=== PATIENT | male | born 1985 | race Caucasian/White ===

== ENCOUNTER 2017-07-27 09:37 | Inpatient (IN) | payer OTHER ==
[~2017-07-27] VITALS: Ht 185.4 cm; Wt 72.1 kg
[~2017-07-27 09:37] MED LIST: NORT25CA PO
--- NOTE | 2017-07-27 10:36 | EMERGENCY ROOM VISIT NOTE ---
History Report prepared by Gerardo: Dotty Branch Under the Supervision of: Dr. No Griggs M.D. First contact with patient: 09:57 Chief Complaint: MENTAL HEALTH EVALUATION Stated Complaint: MENTAL HEALTH EVALUATION History of Present Illness The patient is a 31 year old male who presents to the Emergency Room for a mental health evaluation. The patient was addicted to heroin and quit using for 9 years. About 2 months ago he started using heroin again. The patient states that he uses "about a bundle a day." He snorts the heroin and does not shoot up. He last used it yesterday. This morning he smoked marijuana to help him calm down but did not use any heroin. The patient states that he is "sick of doing dope" and he has been thinking about overdosing to kill himself. He has 5 children that he states he is unable to provide for and he feels that killing himself would be better for them. He denies any previous suicide attempts. 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 A total of 10 systems reviewed and were otherwise negative. Past Medical & Surgical Medical Problems: (1) Bronchitis (2) Suicidal ideation (3) Upper respiratory infection Family History FH: cancer FH: diabetes mellitus FH: seizures Social History Smoking Status: Current Every Day Smoker Alcohol Use: occasionally Drug Use: heroin, marijuana Marital Status: in relationship Housing Status: lives alone Occupation Status: employed Current/Historical Medications No Active Prescriptions or Reported Meds Allergies Coded Allergies: Gabapentin (Verified Allergy, Unknown, Restless Legs, 07/27/17) Physical Exam Vital Signs Date Time Temp Pulse Resp B/P (MAP) Pulse Ox O2 Delivery O2 Flow Rate FiO2 07/27/17 17:55 67 16 114/75 97 Room Air 07/27/17 15:45 86 17 114/79 98 Room Air 07/27/17 13:27 18 98/58 94 07/27/17 10:53 75 18 106/63 95 Room Air 07/27/17 09:43 36.5 107 20 123/74 99 Room Air Physical Exam Vital signs reviewed. General: Disheveled 31 year old male, smells of cigarettes, in no significant distress. HEENT: No scleral icterus, PERRLA, neck supple. Atraumatic. Cardiovascular: Regular rate and rhythm, no extra sounds. Pulmonary: Clear to auscultation bilaterally, normal work of breathing. Abdomen: Soft, nontender, nondistended, positive bowel sounds. Musculoskeletal: Atraumatic, no peripheral edema. Neurologic: Patient awake alert and oriented x 3 Skin: Warm, dry, no rash Psych: Positive SI with a plan. Negative homicidal ideation Medical Decision & Procedures Laboratory Results 07/27/17 10:34 Red Blood Count 4.95, Mean Corpuscular Volume 94.7, Mean Corpuscular Hemoglobin 33.3, Mean Corpuscular Hemoglobin Concent 35.2, Mean Platelet Volume 9.1, Neutrophils (%) (Auto) 71.1, Lymphocytes (%) (Auto) 20.0, Monocytes (%) (Auto) 6.4, Eosinophils (%) (Auto) 2.0, Basophils (%) (Auto) 0.2, Neutrophils # (Auto) 6.73, Lymphocytes # (Auto) 1.89, Monocytes # (Auto) 0.61, Eosinophils # (Auto) 0.19, Basophils # (Auto) 0.02 07/27/17 10:34 Test 07/27/17 10:10 07/27/17 10:34 Urine Color YELLOW Urine Appearance CLEAR (CLEAR) Urine pH >= 9.0 (4.5-7.5) Urine Specific [place] 1.020 (1.000-1.030) Urine Protein NEG (NEG) Urine Glucose (UA) NEG (NEG) Urine Ketones 1+ (NEG) Urine Occult Blood NEG (NEG) Urine Nitrite NEG (NEG) Urine Bilirubin NEG (NEG) Urine Urobilinogen NEG (NEG) Urine Leukocyte Esterase NEG (NEG) Urine Opiates Screen POS (NEG) Urine Methadone, Qualitative NEG (NEG) Urine Barbiturates NEG (NEG) Urine Phencyclidine (PCP) Level NEG (NEG) Ur Amphetamine/Methamphetamine NEG (NEG) MDMA (Ecstasy) Screen NEG (NEG) Urine Benzodiazepines Screen NEG (NEG) Urine Cocaine Metabolite NEG (NEG) Urine Marijuana (THC) POS (NEG) White Blood Count 9.47 K/uL (4.8-10.8) Red Blood Count 4.95 M/uL (4.7-6.1) Hemoglobin 16.5 g/dL (14.0-18.0) Hematocrit 46.9 % (42-52) Mean Corpuscular Volume 94.7 fL (80-100) Mean Corpuscular Hemoglobin 33.3 pg (25-34) Mean Corpuscular Hemoglobin Concent 35.2 g/dl (32-36) Platelet Count 188 K/uL (130-400) Mean Platelet Volume 9.1 fL (7.4-10.4) Neutrophils (%) (Auto) 71.1 % Lymphocytes (%) (Auto) 20.0 % Monocytes (%) (Auto) 6.4 % Eosinophils (%) (Auto) 2.0 % Basophils (%) (Auto) 0.2 % Neutrophils # (Auto) 6.73 K/uL (1.4-6.5) Lymphocytes # (Auto) 1.89 K/uL (1.2-3.4) Monocytes # (Auto) 0.61 K/uL (0.11-0.59) Eosinophils # (Auto) 0.19 K/uL (0-0.5) Basophils # (Auto) 0.02 K/uL (0-0.2) RDW Standard Deviation 41.0 fL (36.4-46.3) RDW Coefficient of Variation 11.9 % (11.5-14.5) Immature Granulocyte % (Auto) 0.3 % Immature Granulocyte # (Auto) 0.03 K/uL (0.00-0.02) Anion Gap 4.0 mmol/L (3-11) Est Creatinine Clear Calc Drug Dose 119.9 ml/min Estimated GFR () 127.9 Estimated GFR (Non- 110.3 BUN/Creatinine Ratio 14.7 (10-20) Calcium Level 9.3 mg/dl (8.5-10.1) Total Bilirubin 0.7 mg/dl (0.2-1) Direct Bilirubin 0.1 mg/dl (0-0.2) Aspartate Amino Transf (AST/SGOT) 11 U/L (15-37) Alanine Aminotransferase (ALT/SGPT) 16 U/L (12-78) Alkaline Phosphatase 83 U/L (45-117) Total Protein 6.8 gm/dl (6.4-8.2) Albumin 3.7 gm/dl (3.4-5.0) Salicylates Level 3.5 mg/dl (2.8-20) Acetaminophen Level < 2 ug/ml (10-30) Ethyl Alcohol mg/dL < 3.0 mg/dl (0-3) Laboratory results per my review. Medications Administered Medications (Trade) Dose Ordered Sig/Jessica Route Start Time Stop Time Status Last Admin Dose Admin Nicotine (Nicoderm Cq 21MG Patch) 1 patch NOW STAT TD 07/27/17 12:23 07/27/17 12:25 DC 07/27/17 12:40 1 PATCH Nicotine Polacrilex (Nicorette 2MG Gum) 1 piece NOW STAT MT 07/27/17 12:24 07/27/17 12:25 DC 07/27/17 12:40 1 PIECE Clonidine HCl (Catapres Tab) 0.2 mg NOW ONCE PO 07/27/17 12:30 07/27/17 12:31 DC 07/27/17 12:41 0.2 MG Ondansetron HCl (Zofran Odt) 4 mg NOW STAT PO 07/27/17 12:25 07/27/17 12:26 DC 07/27/17 12:40 4 MG Hydroxyzine HCl (Vistaril Tab) 50 mg HSZ PRN PO 07/27/17 14:45 08/26/17 14:44 07/27/17 21:44 50 MG ED Course 0957: Past medical records reviewed. The patient was evaluated in room A5. A complete history and physical examination was performed. 1223: Nicotine 1 patch TD 1224: Nicotine Polacrilex 1 piece MT 1224: I discussed the patient's case with the case packer and sealer. 1225: Zofran 4 mg PO 1230: Clonidine HCl 0.2 mg PO 1439: I spoke with Dr. Shah of psychiatry. The patient has been accepted to [facility] for further management. Medical Decision Differential diagnosis: Etiologies such as mood disorder, infection, hypoglycemia, electrolyte abnormalities, cardiac sources, intracerebral event, toxicologic, neurologic, as well as others were entertained. This patient was evaluated and appeared to be in no significant distress. The patient was medically cleared. He did require NicoDerm patch and nicotine gum. After multiple evaluations, it is clear that the patient has intent to commit suicide with the plan using a gun or to overdose on heroin. A 302 petitioning statement was submitted by case management however this time the patient is voluntary. 3 S. has accepted the patient. He is aware of the plan and agrees. Consults Time Called: 1436 Consulting Physician: Dr. Shah Returned Call: [address] Shah of psychiatry. The patient has been accepted to [facility] for further management. Impression Primary Impression: Planning to commit suicide Additional Impression: Polysubstance abuse Scribe Attestation The scribe's documentation has been prepared under my direction and personally reviewed by me in its entirety. I confirm that the note above accurately reflects all work, treatment, procedures, and medical decision making performed by me. Departure Information Dispostion Mental Health Acute Care Prescriptions No Active Prescriptions or Reported Meds Referrals No Doctor, Assigned (PCP) Patient Instructions My [facility] Problem Qualifiers
[2017-07-27 10:40] LABS: URINE APPEARANCE CLEAR (CLEAR); URINE BILIRUBIN NEG (NEG); URINE COLOR YELLOW; URINE NITRITE NEG (NEG); URINE PH >= 9.0 (4.5-7.5); UROBILINOGEN NEG (NEG); ZZUR CULT IF INDIC CLEAN CATCH NO
[2017-07-27 10:49] LABS: MANUAL MICROSCOPIC REQUIRED? NO; REVIEW REQ? NO
[2017-07-27 11:05] LABS: BASO % 0.2 %; BASO ABS # 0.02 K/uL (0-0.2); COMPLETE YES; HEMATOCRIT 46.9 % (42-52); IG% 0.3 %; LYMPH ABS # 1.89 K/uL (1.2-3.4); MEAN CELL VOLUME 94.7 fL (80-100); MEAN CORPUSCULAR HEMOGLOBIN 33.3 pg (25-34); MEAN CORPUSCULAR HGB CONC 35.2 g/dl (32-36); MEAN PLATELET VOLUME 9.1 fL (7.4-10.4); MONO % 6.4 %; NEUT % 71.1 %; PLATELET COUNT 188 K/uL (130-400); RED BLOOD COUNT 4.95 M/uL (4.7-6.1); WHITE BLOOD COUNT 9.47 K/uL (4.8-10.8)
[2017-07-27 11:19] LABS: BENZODIAZEPINE, URINE NEG (NEG); COCAINE,URINE NEG (NEG); PHENCYCLIDINE, URINE NEG (NEG)
[2017-07-27 11:25] LABS: BUN/CREATININE RATIO 14.7 (10-20); CALCIUM 9.3 mg/dl (8.5-10.1); CREATININE 0.91 mg/dl (0.60-1.40); POTASSIUM 3.7 mmol/L (3.5-5.1)
[2017-07-27 11:38] LABS: ACETAMINOPHEN < 2 ug/ml (10-30)
[2017-07-27] MEDS ORDERED: NICOTINE 21 MG/24 HR TDSY TD STA (12:23)
[2017-07-27] MEDS ORDERED: NICOTINE POLACRILEX 2 MG GUM MT STA (12:24)
[2017-07-27] MEDS ORDERED: ONDANSETRON 4MG OD TAB PO STA (12:25)
[2017-07-27] MEDS ORDERED: CLONIDINE HCL 0.1 MG TAB PO ONE (12:30)
[2017-07-27] MEDS ORDERED: ALUMINUM/MAGNESIUM SUSP 30 ML UDC PO PRN (14:45)
[2017-07-27] MEDS ORDERED: ACETAMINOPHEN 325 MG TAB PO PRN (14:45)
[2017-07-27] MEDS ORDERED: MAGNESIUM HYDROXIDE SUSP 30 ML UDC PO PRN (14:45)
[2017-07-27] MEDS ORDERED: SODIUM CHLORIDE 0.65% NA SOLN 45 ML (OCEAN) PRN (14:45)
[2017-07-27] MEDS ORDERED: BISMUTH SUBSALICYLATE PER ML OMNICELL CHARGE PO PRN (14:45)
[2017-07-27] MEDS ORDERED: NON-FORMULARY MEDICATION SCH (15:45)
[2017-07-27 17:55] VITALS: O2SAT 97
[2017-07-27] MEDS ORDERED: DIPHENOXYLATE/ATROPINE 2.5/0.025MG TAB PO PRN (18:45)
[2017-07-27 18:56] VITALS: BP 123/80; PULSE 83; TEMP 36.5; Ht 185.4 cm; Wt 72.1 kg
[2017-07-27] MEDS ORDERED: NURSING VERBAL MED ORDER ONE (19:45)
[2017-07-27] MEDS ORDERED: NICOTINE POLACRILEX 2 MG GUM MT PRN (20:00)
[2017-07-27] MEDS: NICOTINE 21 MG/24 HR TDSY EXT SCH (20:09)
[2017-07-27 20:10] VITALS: BP 108/72; PULSE 79
[2017-07-27] MEDS: CLONIDINE HCL 0.1 MG TAB PO SCH (20:13)
[2017-07-27] MEDS: NICOTINE POLACRILEX 2 MG GUM MT PRN (21:03)
[2017-07-27] MEDS: hydrOXYzine HCL 25 MG TAB PO PRN ×2 (21:13→21:44)
[2017-07-28 07:04] VITALS: BP_SYST 102; BP_SYST 120; BP_DIAS 69; BP_DIAS 82; PULSE 71; PULSE 76; TEMP 36.3
[2017-07-28] MEDS: NICOTINE 21 MG/24 HR TDSY EXT SCH (07:40)
[2017-07-28] MEDS: CLONIDINE HCL 0.1 MG TAB PO SCH ×4 (07:40→20:07)
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
[2017-07-28] MEDS: NICOTINE POLACRILEX 2 MG GUM MT PRN ×4 (09:55→18:50)
[2017-07-28 10:07] VITALS: BP 120/82; PULSE 71; PULSE 76; TEMP 36.3
[2017-07-28] MEDS: hydrOXYzine HCL 25 MG TAB PO PRN ×6 (11:23→22:57)
[2017-07-28 12:18] VITALS: BP 122/86; PULSE 76; TEMP 36.7
[2017-07-28] MEDS ORDERED: ALBU4TAB10 PO (14:10)
[2017-07-28] MEDS ORDERED: VNTHFA/IN INH (14:11)
[2017-07-28] MEDS ORDERED: ALBUTEROL HFA 8 GM INHALER INH PRN (14:15)
[2017-07-28 21:32] VITALS: BP 117/79; PULSE 69
[2017-07-28] MEDS ORDERED: MIRTAZAPINE TAB 15 MG TAB PO SCH (22:00)
[2017-07-28] MEDS: CLONIDINE HCL 0.1 MG TAB PO PRN ×2 (22:07→23:52)
[2017-07-28 22:10] VITALS: BP 113/80; PULSE 88
[2017-07-29] VITALS (10 sets, daily range): BP systolic 92–131; BP diastolic 60–88; PULSE 57–90; TEMP 36.4–36.7
[2017-07-29] MEDS ORDERED: NURSING VERBAL MED ORDER ONE (00:30)
[2017-07-29] MEDS ORDERED: MIRTAZAPINE TAB 15 MG TAB PO PRN (01:00)
[2017-07-29] MEDS: NICOTINE 21 MG/24 HR TDSY EXT SCH (08:16)
[2017-07-29] MEDS: NICOTINE POLACRILEX 2 MG GUM MT PRN ×5 (08:16→18:48)
[2017-07-29] MEDS: CLONIDINE HCL 0.1 MG TAB PO SCH ×4 (09:58→20:00)
[2017-07-29] MEDS: CLONIDINE HCL 0.1 MG TAB PO PRN ×3 (10:20→21:10)
[2017-07-29] MEDS: hydrOXYzine HCL 25 MG TAB PO PRN ×3 (10:21→18:47)
--- NOTE | 2017-07-29 10:40 | Psychiatric Progress Notes ---
Progress Note Date of Service Jul 29, 2017. Interval History Donovan Rivas is a 31-year-old male who currently lives in [place], has a history of heroin addiction, and presented to the ER with suicidal thoughts to overdose on heroin or shoot himself unless he could get help for his addiction. He was admitted on a 201 voluntary commitment. Chief Complaint "I didn't sleep worth anything last night". Subjective Patient was seen & assessed interval progress reviewed with Treatment Team. Staff report the patient is endorsing withdrawal symptoms, for which he has been receiving clonidine. He has been able to eat and keep food down, but slept poorly overnight, and told staff he needed a higher dose of Remeron and also wanted Risperdal for sleep, saying he got these medications when he was in assisted. He received multiple doses of hydroxyzine for sleep, which were poorly effective, and woke up frequently overnight. Today, he was retrieved from his bed for the interview, and states he is feeling irritable and agitated because he was not able to sleep. He initially asks for a higher dose of Remeron, then says he wants Risperdal, and says if he can't get something to make him sleep, "I'll just say what I need to to get out of here," as he feels he kept his roommate up overnight with his restlessness. When attempting to discuss indications for Risperdal, he states that he is "bipolar schizophrenic," and is argumentative when advised that he did not endorse any of these symptoms yesterday when we went through his history. He claims that he was on Risperdal before from providers at [facility], and found it helpful. He is agreeing to sign a release so that we can get his old records. He endorses irritability and withdrawal symptoms of nausea, cold sweats, and fatigue. He is forcing himself to eat, and denies vomiting. He says he does not want Zofran for nausea, stating "I'll just tough it out." He denies suicidal thoughts, but states that he is not safe to leave the hospital, because "if I got out of here, I go straight to my dealer, and I know it's gonna kill me." He remains willing for rehabilitation, and states his primary goal is to get into rehabilitation, and he is willing to go to any facility that will accept him. 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 He has a meeting with his fiance this afternoon, and says she is supportive of him getting treatment. Sleep Information Total Hours of Sleep: 5.25 Meal Information Percent of Breakfast Consumed: 100 Percent of Lunch Consumed: 25 Percent of Dinner Consumed: 100 Mental Status Exam During interview pt is: alert and oriented, cooperative Appearance: appropriately dressed, appropriately groomed Eye contact is: fair Motor behavior is: steady gait & station, no abnormal motor movements Speech: normal in rate, rhythm & volume Affect: mood congruent, irritable, anxious Mood is: anxious, other ("I didn't sleep good") Thought process: goal directed Thought content: reality based without delusions Suicidal thought are: denied Homicidal thoughts are: denied Hallucinations: denies auditory, denies visual Cognition: memory grossly intact, attention grossly intact, language grossly intact Intelligence estimated to be: average Insight: fair Judgement: fair Impression 31-year-old white male with a history of heroin and polysubstance dependence and self-reported history of an unclear mood disorder, who presented with worsening suicidal thoughts and multiple plans in the context of multiple stressors and relapse on heroin and cannabis. He is admitted voluntarily, is being treated for opiate withdrawal and medications have been restarted for mood , and is willing for inpatient rehabilitation, which is the most appropriate disposition. He requires inpatient treatment due to the high risk for ongoing substance abuse and self-harm if his risk factors are not mitigated. He is psychiatrically stable for transfer to an inpatient rehabilitation as soon as a bed can be secured, as he states he feels safe in the hospital or in rehabilitation, but is not able to contract for safety if he is discharged, as he fears he would relapse and would likely from his heroin use. Plan (1) Depression - Differential includes substance induced depression, MDD, and personality disorder. - Start mirtazapine 15mg qhs as patient reports previous good response for mood , sleep, appetite. - Attend groups and participate, work on healthy coping skills and discharge safety planning. - Family meeting with mother and fiance. - Will need OP psychiatric care, to be arranged by rehab after completing their program. 07/29 - Increase mirtazapine to 30 mg daily at bedtime to target mood per patient's request. - Increase hydroxyzine to 100 mg daily at bedtime when necessary insomnia. - Add risperidone 1 mg every 4 hours when necessary for agitation per patient's request, as he states he was on this medication in the past and it helped with his irritability and mood. Order fasting lipid profile and glucose for tomorrow for monitoring on an atypical. - Request records from [facility] to try to determine past diagnoses, as the patient states that he is diagnosed with "schizophrenia bipolar," but denies all symptoms consistent with gino or psychosis when asked. -Family meeting with fiance today. (2) Heroin addiction - Clonidine protocol for withdrawal. - Patient willing for rehab and is a good candidate, is motivated and actively participating in treatment. Will make referrals with a goal to transfer directly to rehab. 07/29 - Continue to treat symptoms of withdrawal, with clonidine, Lomotil, Tylenol, and Zofran. Encourage good fluid intake. - Patient requested staff to get records from his PCP, Dr. Haywood, regarding previous prescriptions for baclofen and Elavil. They confirmed that both medications had been prescribed, and patient requested they be ordered for symptomatic treatment of muscle tightness and insomnia while here. He will need follow-up with his PCP after discharge from rehabilitation for ongoing medical treatment. (3) Cannabis abuse Patient educated about the risks of ongoing substance abuse and recommendations for abstinence. Refer for rehab. Visit Code E&M Code: 85843 Inventory Assets Strengths: Willing for treatment, supportive family. Risk Factors Assessment Male: Yes : Yes /single/: No Higher / Fall in social status: No Health problems: Yes Mental Health Diagnoses: Yes Substance use disorders: Yes Previous attempt: No Family history of suicide: No Previous psychiatric stay: No Hopelessness: Yes Smoker: Yes Protective Factors Assessment : No Responsible for young children: Yes Employed: No Stable relationships: Yes Supportive family: Yes Good rapport with provider: No Data Vital Signs Last 24 Hrs: Date Time Temp Pulse Resp B/P (MAP) Pulse Ox O2 Delivery O2 Flow Rate FiO2 07/29/17 10:21 81 124/72 07/29/17 08:53 75 95/71 07/29/17 06:56 16 92/60 07/29/17 05:46 36.4 57 16 112/74 07/29/17 00:25 76 18 112/72 07/28/17 22:10 88 16 113/80 07/28/17 21:32 69 16 117/79 07/28/17 12:18 36.7 76 16 122/86 Meds Administered Last 24 Hrs: Meds Administered (Past 24Hrs) Medications (Trade) Dose Ordered Sig/Jessica Route Start Time Stop Time Status Last Admin Dose Admin Nicotine (Nicoderm Cq 21MG Patch) 1 patch NOW STAT TD 07/27/17 12:23 07/27/17 12:25 DC 07/27/17 12:40 1 PATCH Nicotine Polacrilex (Nicorette 2MG Gum) 1 piece NOW STAT MT 07/27/17 12:24 07/27/17 12:25 DC 07/27/17 12:40 1 PIECE Clonidine HCl (Catapres Tab) 0.2 mg NOW ONCE PO 07/27/17 12:30 07/27/17 12:31 DC 07/27/17 12:41 0.2 MG Ondansetron HCl (Zofran Odt) 4 mg NOW STAT PO 07/27/17 12:25 07/27/17 12:26 DC 07/27/17 12:40 4 MG Acetaminophen (Tylenol Tab) 650 mg Q4H PRN PO 07/27/17 14:45 08/26/17 14:44 07/28/17 09:54 650 MG Hydroxyzine HCl (Vistaril Tab) 50 mg HSZ PRN PO 07/27/17 14:45 08/26/17 14:44 07/28/17 22:57 50 MG Hydroxyzine HCl (Vistaril Tab) 25 mg Q4H PRN PO 07/27/17 14:45 08/26/17 14:44 07/29/17 10:21 25 MG Clonidine HCl (Catapres Tab) 0.1 mg Q4HWA PO 07/27/17 20:00 08/26/17 19:59 07/28/17 20:07 0.1 MG Clonidine HCl (Catapres Tab) 0.1 mg Q2H PRN PO 07/27/17 18:45 08/26/17 18:44 07/29/17 10:20 0.1 MG Nicotine (Nicoderm Cq 21MG Patch) 1 patch QAM EXT 07/27/17 20:00 08/26/17 19:59 07/29/17 08:16 1 PATCH Miscellaneous (Remove Nicoderm Patch) 1 ea QAM N/A 07/28/17 09:00 08/27/17 08:59 07/29/17 06:50 1 EA Nicotine Polacrilex (Nicorette 2MG Gum) 2 piece Q1H PRN MT 07/27/17 21:00 08/26/17 20:59 07/29/17 09:29 1 PIECE Mirtazapine (Remeron Tab) 15 mg HS PO 07/28/17 22:00 08/27/17 21:59 07/28/17 21:29 15 MG Albuterol (Ventolin Hfa Inhaler) f Q6H PRN INH 07/28/17 14:15 08/27/17 14:14 07/29/17 09:58 2 PUFFS Problem Qualifiers (1) Depression: Depression Type: unspecified Qualified Codes: F32.9 - Major depressive disorder, single episode, unspecified
[2017-07-29] MEDS ORDERED: ONDANSETRON 4 MG TAB PO PRN (10:45)
[2017-07-29 13:45] LABS: COD UR NEGATIVE NG/ML (CUTOFF=50); HYDROCOD UR NEGATIVE NG/ML (CUTOFF=50); HYDROMOR UR NEGATIVE NG/ML (CUTOFF=50); MORPHINE UR 1590 NG/ML (CUTOFF=50); NORHYDROCODONE CONF UR NEGATIVE NG/ML (CUTOFF=50); OXYMORPH UR NEGATIVE NG/ML (CUTOFF=50)
[2017-07-29] MEDS ORDERED: BACL10TA PO (13:51)
[2017-07-29] MEDS ORDERED: AMT50 PO (13:52)
[2017-07-29] MEDS: RISPERIDONE 1 MG TAB PO PRN ×2 (16:10→21:13)
[2017-07-29] MEDS ORDERED: MIRTAZAPINE TAB 15 MG TAB PO SCH (22:00)
[2017-07-29] MEDS ORDERED: hydrOXYzine HCL 25 MG TAB PO PRN (22:00)
[2017-07-29] MEDS ORDERED: BACLOFEN TAB 20 MG TAB PO SCH (22:00)
[2017-07-29] MEDS ORDERED: AMITRIPTYLINE HCL 100 MG TAB PO SCH (22:00)
[2017-07-30 06:45] VITALS: BP_SYST 113; BP_SYST 118; BP_DIAS 71; BP_DIAS 80; PULSE 60; PULSE 70; TEMP 36.3
[2017-07-30] MEDS: NICOTINE POLACRILEX 2 MG GUM MT PRN ×3 (08:08→14:55)
[2017-07-30] MEDS: CLONIDINE HCL 0.1 MG TAB PO SCH ×2 (08:08→12:06)
[2017-07-30 08:35] VITALS: BP 118/80; PULSE 70; TEMP 36.3
[2017-07-30 08:57] LABS: CHOLESTEROL/HDL RATIO 3.6
[2017-07-30] MEDS: NICOTINE 21 MG/24 HR TDSY EXT SCH ×2 (09:39→10:25)
[2017-07-30] MEDS: RISPERIDONE 1 MG TAB PO PRN ×2 (10:28→15:29)
[2017-07-30] MEDS: hydrOXYzine HCL 25 MG TAB PO PRN (11:24)
[2017-07-30 12:07] VITALS: BP 114/77; PULSE 84
[2017-07-30] MEDS ORDERED: RSP1 PO (13:40)
[2017-07-30] MEDS ORDERED: RMR15 PO (13:40)
[2017-07-30] MEDS ORDERED: NICO21DI4 EXT (13:40)
[2017-07-30] MEDS ORDERED: BACL10TA PO (13:40)
[2017-07-30] MEDS ORDERED: CTP1 PO ×2 (13:40)
[2017-07-30] MEDS ORDERED: AMT50 PO (13:40)
[2017-07-30] MEDS ORDERED: ATR25 PO ×2 (13:40)
[2017-07-30] MEDS ORDERED: VNTHFA/IN INH (13:40)
[2017-07-30] MEDS ORDERED: NCR2 MT (13:40)
--- NOTE | 2017-07-30 13:49 | Discharge Instructions ---
Discharge Information Report Includes Report will include the: Discharge Instructions & Summary Admission Admission Date / Time: Jul 27, 2017 at 18:30 Reason for Admission: Depression Nos Discharge Discharge Diagnosis / Problem: Heroin addiction, unspecified depressive disorder, cannabis use disorder Condition at Discharge: Fair Discharge Goals Goal(s): Decrease discomfort, Improve function, Improve disease control, Learn about illness, Therapeutic intervention Activity Recommendations Activity Limitations: resume your previous activity . Instructions / Follow-Up Instructions / Follow-Up . SPECIAL CARE INSTRUCTIONS: 1. Follow through with your scheduled aftercare appointments. If unable to keep an appointment, please call to reschedule. 2. Take your medication only as prescribed. Medication should not be changed or stopped without the approval of your doctor. In the event of worsening symptoms or concerns about side effects, contact your doctor immediately. 3. Utilize new healthy coping skills, anger management skills, and stress management skills learned during your hospitalization. Journal feelings and process them with a support person. Identify stressors or situations that may result in relapse, deterioration or inappropriate behaviors and develop a plan to deal with those issues. 4. If your coping skills are ineffective and you are in crisis, contact your outpatient providers for direction. If unable to reach your providers, please call the CAN HELP LINE AT or go to the closest Emergency Room. 5. Avoid alcohol and un-prescribed drugs. 6. You have been provided with the Mental Health Advance Directives Pamphlet for your review. AFTERCARE APPOINTMENTS: * Please call your insurance company prior to your scheduled appointment to confirm your aftercare providers are covered. Take your insurance information to your appointments. . Discharge / Aftercare Rn Clinical Appeals: Name: [facility] dual diagnosis unit Date of Appointment: Jul 30, 2017 . Follow-Up Care Plan for Follow-Up Care: inpatient rehab. Current Hospital Diet Patient's current hospital diet: Regular Diet Discharge Diet Recommended Diet: Regular Diet Procedures Procedures Performed: No Pending Studies Pending Studies at Discharge: No Medical Emergencies . Who to Call and When: Medical Emergencies: For questions or emergencies related to your hospital stay, please contact the Inpatient Behavioral Health Unit at [phone]. A adult education instructor is on-call 08/06 for the Behavioral Health Unit for emergencies At any time you feel your situation is an emergency, you may also call 911 immediately. . Non-Emergent Contact Non-Emergency issues call your: Primary Care Provider Advance Directives Do You Have an Existing Mental: No Existing Living Will: No Existing Power of Natural Resources Instructor: No Advance Directives Info Given: To Pt/S.O. Advance Directives Reason: Declines as Mental Health Visit. Discharge Summary Admission HPI Per the Admitting provider: Patient presented to the emergency room with family, stating he "wants off dope in the pain and the sickness to stop or I'm going to kill myself." He reported a long history of heroin addiction, had been clean for 9 years and then relapsed 2 months ago, using a bundle a day, and smoking marijuana daily. He reports decreased appetite and a 10lb weight loss, low mood, poor sleep. Mood is "severe anxiety and depression," feels he can't stop thinking at night, worries about what his kids and "old lady are doing." He has only been sleeping a few hours a night, and says "sleep deprivation turns into meanness, and I'm not a mean person." He denies symptoms of gino, including elevated mood, decreased need for sleep, increased energy, and says his high moments only last 10 minutes. He denies ever having hallucinations, other than when he used mushrooms. He endorsed SI with thoughts of overdosing or hanging himself, and said he thought his 5 children would be better off without him, as he can't care for them. He says his best friend killed himself, and "all his kids get checks, so I figured that would be better for them." His suicidal thoughts have been intensifying for the past 2 months. He said he came to the hospital to get clean and get to rehab. 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 He now has to testify at a trial, which he thinks "is sometime in August." He says he is also getting in March, and will have 3 step kids, plus his 2 biological children. He says he was living with his fiance in [facility], but left because he was doing drugs. His kids are 15, 10, 6, 2 and 11 months, and the 2 younger ones are his. He says he quit going to all appointments 6 months ago, and has no outpatient providers. He says he would like to go to rehab, "but only if it's smoking. I have to go inpatient, because if it's outpatient, I will not go." He says he has been trying to get into rehab and they tell him they'll call when a bed is open, but they never call him back, "if no one's gonna help me, there's nothing I can do." He says he feels safe in the hospital, and is glad he is getting help. Admission Exam Per the Admitting provider: See H and P. Hospital Course (1) Depression - Differential includes substance induced depression, MDD, and personality disorder. - Start mirtazapine 15mg qhs as patient reports previous good response for mood , sleep, appetite. - Attend groups and participate, work on healthy coping skills and discharge safety planning. - Family meeting with mother and fiance. - Will need OP psychiatric care, to be arranged by rehab after completing their program. 07/29 - Increase mirtazapine to 30 mg daily at bedtime to target mood per patient's request. - Increase hydroxyzine to 100 mg daily at bedtime when necessary insomnia. - Add risperidone 1 mg every 4 hours when necessary for agitation per patient's request, as he states he was on this medication in the past and it helped with his irritability and mood. Order fasting lipid profile and glucose for tomorrow for monitoring on an atypical. - Request records from [facility] to try to determine past diagnoses, as the patient states that he is diagnosed with "schizophrenia bipolar," but denies all symptoms consistent with gino or psychosis when asked. -Family meeting with fijanet today. (2) Heroin addiction - Clonidine protocol for withdrawal. - Patient willing for rehab and is a good candidate, is motivated and actively participating in treatment. Will make referrals with a goal to transfer directly to rehab. 07/29 - Continue to treat symptoms of withdrawal, with clonidine, Lomotil, Tylenol, and Zofran. Encourage good fluid intake. - Patient requested staff to get records from his PCP, Dr. Haywood, regarding previous prescriptions for baclofen and Elavil. They confirmed that both medications had been prescribed, and patient requested they be ordered for symptomatic treatment of muscle tightness and insomnia while here. He will need follow-up with his PCP after discharge from rehabilitation for ongoing medical treatment. (3) Cannabis abuse Patient educated about the risks of ongoing substance abuse and recommendations for abstinence. Refer for rehab. Risk Factors Assessment Male: Yes : Yes /single/: No Higher / Fall in social status: No Health problems: Yes Mental Health Diagnoses: Yes Substance use disorders: Yes Previous attempt: No Family history of suicide: No Previous psychiatric stay: No Hopelessness: Yes Smoker: Yes Protective Factors Assessment : No Responsible for young children: Yes Employed: No Stable relationships: Yes Supportive family: Yes Good rapport with provider: No Absence of risk factors above: Yes (risk factors were mitigated by admission to the inpatient unit, adjusting medications to target depression, withdrawal symptoms, a family meeting was held with his girlfriend who is very supportive of his treatment here as well as his desire for inpatient substance abuse treatment. The patient made an effort to work on healthy coping skills. He participated in group and individual therapy. He has consistently expressed willingness and excitement and understands his need for inpatient rehabilitation. He is denying suicidality while he is in the hospital but understands the risk of relapse and risk of self-harm if he were not in a supervised environment.) Day of Discharge Assessment Patient seen and assessed and reviewed with nursing. Patient reports that he slept all night last night after adjustments to his medications yesterday including adding Risperdal, amitriptyline. He does continue to have some symptoms of withdrawal but is managing well with his clonidine protocol. He has excited about going to rehabilitation today. He is to note denying suicidality here in the hospital. We reviewed his medications and he understands the risks and benefits. The patient is alert and oriented;he is cooperative and pleasant. Motor behavior is unremarkable with steady and well- balanced gait. He describes his mood as excited. His affect is normal. His thought processes are logical and goal-directed and getting the help that he needs. He denies hallucinations or delusions. His intelligence is estimated to be average. His insight and judgment are fair and improving. Patient is being discharged to inpatient rehabilitation for his opiate addiction and cannabis abuse. He has an excellent candidate as he has been expressing willingness and desire for treatment admission here. Laboratory Refer to printed laboratory reports Test 07/27/17 10:10 07/27/17 10:34 07/30/17 07:52 Urine Color YELLOW Urine Appearance CLEAR Urine pH >= 9.0 Urine Specific [place] 1.020 Urine Protein NEG Urine Glucose (UA) NEG Urine Ketones 1+ Urine Occult Blood NEG Urine Nitrite NEG Urine Bilirubin NEG Urine Urobilinogen NEG Urine Leukocyte Esterase NEG Urine Synthetic Stimulants Pending Urine Opiates Screen POS Urine Codeine Confirmation (GC/MS) NEGATIVE Urine Morphine Confirm (GC/MS) 1590 Urine Hydrocodone Confirm (GC/MS) NEGATIVE Urine Norhydrocodone NEGATIVE Urine Noroxycodone NEGATIVE Urine Oxycodone Confirm (GC/MS) NEGATIVE Urine Oxymorphone Confirm (GC/MS) NEGATIVE Urine Methadone, Qualitative NEG Urine Hydromorphone Confirm (GC/MS) NEGATIVE Urine Barbiturates NEG Urine Phencyclidine (PCP) Level NEG Ur Amphetamine/Methamphetamine NEG MDMA (Ecstasy) Screen NEG Urine Benzodiazepines Screen NEG Urine Cocaine Metabolite NEG Cannabinoids Comment Pending Urine Synthetic Cannabinoids Pending Ur Synthetic Cannabinoids Confirm Pending Urine Marijuana (THC) POS Urine Marijuana (THC Carboxy Acid) 628 White Blood Count 9.47 Red Blood Count 4.95 Hemoglobin 16.5 Hematocrit 46.9 Mean Corpuscular Volume 94.7 Mean Corpuscular Hemoglobin 33.3 Mean Corpuscular Hemoglobin Concent 35.2 Platelet Count 188 Mean Platelet Volume 9.1 Neutrophils (%) (Auto) 71.1 Lymphocytes (%) (Auto) 20.0 Monocytes (%) (Auto) 6.4 Eosinophils (%) (Auto) 2.0 Basophils (%) (Auto) 0.2 Neutrophils # (Auto) 6.73 Lymphocytes # (Auto) 1.89 Monocytes # (Auto) 0.61 Eosinophils # (Auto) 0.19 Basophils # (Auto) 0.02 RDW Standard Deviation 41.0 RDW Coefficient of Variation 11.9 Immature Granulocyte % (Auto) 0.3 Immature Granulocyte # (Auto) 0.03 Sodium Level 139 Potassium Level 3.7 Chloride Level 107 Carbon Dioxide Level 28 Anion Gap 4.0 Blood Urea Nitrogen 13 Creatinine 0.91 Est Creatinine Clear Calc Drug Dose 119.9 Estimated GFR () 127.9 Estimated GFR (Non- 110.3 BUN/Creatinine Ratio 14.7 Random Glucose 108 Calcium Level 9.3 Total Bilirubin 0.7 Direct Bilirubin 0.1 Aspartate Amino Transferase (AST) 11 Alanine Aminotransferase (ALT) 16 Alkaline Phosphatase 83 Total Protein 6.8 Albumin 3.7 Salicylates Level 3.5 Acetaminophen Level < 2 Ethyl Alcohol mg/dL < 3.0 Fasting Glucose 103 Triglycerides Level 151 Cholesterol Level 153 HDL Cholesterol 43 LDL Cholesterol, Calculated 80 VLDL Cholesterol, Calculated 30 Cholesterol/HDL Ratio 3.6 Total Time Total Time Spent (min): Greater than 30 minutes Total Time Included: examination of the patient, medication reconciliation Tobacco Cessation at Discharge Smoking Status: Current Every Day Smoker (1.5 PPD) FDA approved Prescription: nicotine replacement product (brief intervention patient willing to use nicotine replacement products. Disposition is rehabilitation) Problem Qualifiers (1) Depression: Depression Type: unspecified Qualified Codes: F32.9 - Major depressive disorder, single episode, unspecified
[2017-07-30 13:55] VITALS: BP 114/77; PULSE 84; TEMP 36.3; O2SAT 97
[2017-07-30 15:12] VITALS: BP 109/73; PULSE 76
[2017-07-30] MEDS: CLONIDINE HCL 0.1 MG TAB PO PRN (15:12)
[2017-08-04 08:31] LABS: SYNTHETIC CANNABINOIDS QL URIN NEGATIVE (Negative)
== END 2017-07-30 15:30 | DRG 881 ==
LOC: C.EDB 09:38 → ENRESERV 18:08 → C.MHU 18:30
PROVIDERS: ADMIT Psychiatry & Neurology Psychiatry; ATTEND Psychiatry & Neurology Psychiatry
DX: F32.9 Major depressive disorder, single episode, unspecified (principal); R45.851 Suicidal ideations; F12.10 Cannabis abuse, uncomplicated; F19.10 Other psychoactive substance abuse, uncomplicated; F17.200 Nicotine dependence, unspecified, uncomplicated; Z80.9 Family history of malignant neoplasm, unspecified; Z83.3 Family history of diabetes mellitus; Z82.0 Family history of epilepsy and other diseases of the nervous system

== ENCOUNTER 2018-01-08 12:37 | Emergency (ER) | payer OTHER ==
[~2018-01-08] VITALS: Ht 182.9 cm; Wt 82.0 kg
[~2018-01-08 12:37] MED LIST changes: +AMT50 PO; +ATR25 PO; +BACL10TA PO; +CTP1 PO; +NCR2 MT; +NICO21DI4 EXT; -NORT25CA PO; +RMR15 PO; +RSP1 PO; +VNTHFA/IN INH
[2018-01-08 12:43] VITALS: BP 124/74; PULSE 76; TEMP 36.9; O2SAT 96; Ht 182.9 cm; Wt 82.0 kg
[2018-01-08] MEDS ORDERED: AMOX500C3 PO (13:28)
--- NOTE | 2018-01-08 13:29 | EMERGENCY ROOM VISIT NOTE ---
ED Visit Note First contact with patient: 12:46 CHIEF COMPLAINT: Left ear pain 3 days HISTORY OF PRESENT ILLNESS: Patient is a 32-year-old white male who presents the emergency department for evaluation of left ear pain 3 days. He describes a constant, aching pain that he rates a 3/10. He notes a sensation that there is "bubbles" in his ear. He states that swallowing makes the feeling worse, and swallowing and chewing increases pain. He denies any lightheadedness or dizziness. He has some chronic nasal congestion and drainage, but no sinus pressure, headache or cough. The pain radiates to his left jaw slightly. He took ibuprofen yesterday. 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 No sore throat or recent URI. No drainage from the ear canal. No hearing loss or trauma to the ear. REVIEW OF SYSTEMS: Review of systems as per HPI. All other systems reviewed were negative. At least 6 systems reviewed. PMH: Electronic medical records are reviewed and summarized as above/below. See Problem List. SOCIAL HISTORY: Patient lives at home. Smoker. PHYSICAL EXAM: Vital Signs: Reviewed Nurse's notes. MENTAL STATUS: Alert and cooperative. Nontoxic appearing. EYES: PERRL, EOMI, no discharge or injection. EARS: Examination of the left ear show the tympanic membranes to be erythematous and bulging with an early purulent effusion. TM is intact without perforation. External canal is clear. No tragal or auricular motion tenderness. No pain, swelling or erythema over the mastoid. Right TM is intact , not inflamed, have normal contour. External canal is clear. NOSE: Nares patent, turbinates edematous and boggy with clear rhinorrhea. MOUTH: Mucous membranes moist, no lesions, tongue and gums appear normal. THROAT: No pharyngeal injection, exudates, or tonsillar hypertrophy. Airway is patent. NECK: Supple, nontender, no lymphadenopathy. HEART: Regular rate and rhythm without murmurs, ectopy, gallops, or rubs. LUNGS: Clear to auscultation and breath sounds equal, no wheezes, rales, or rhonchi. SKIN: Normal. NEUROLOGICAL: Sensory and motor functions grossly intact. Normal gait. ED COURSE: The patient was seen and evaluated. He has evidence for a left otitis media. No external symptoms, no evidence for mastoiditis. He was prescribed amoxicillin. Supportive care measures using [id number] medications were also discussed. He was discharged home in good condition. Medication reconciliation: I attest that I have personally reviewed the patient' s current medication list. Blood pressure screening : Patient was found to have normal blood pressure on screening and does not require follow-up. Problem List Medical Problems: (1) Bilateral leg pain Status: Resolved (2) Bronchitis Status: Resolved (3) Cannabis abuse Status: Resolved (4) Colitis Status: Resolved (5) Contusion of multiple sites Status: Resolved (6) Contusion of rib on right side Status: Resolved (7) Dental caries Status: Resolved (8) Dentalgia Status: Resolved (9) Depression Status: Chronic (10) Dog bite of hand Status: Resolved (11) Fall Status: Resolved (12) GI bleed Status: Resolved (13) Heroin addiction Status: Resolved (14) Neuropathic pain of both legs Status: Chronic (15) Polysubstance abuse Status: Resolved (16) Right sided abdominal pain Status: Resolved (17) Suicidal ideation Status: Resolved (18) Upper respiratory infection Status: Resolved Current/Historical Medications Scheduled Amitriptyline Hcl (Elavil), 100 MG PO HS Amoxicillin (Amoxil), 500 MG PO TID Baclofen (Lioresal), 20 MG PO HS Clonidine HCl (Clonidine HCl), 0.1 MG PO Q4HWA Mirtazapine (Mirtazapine), 30 MG PO HS Nicotine (Nicoderm Cq), 1 PATCH EXT QAM Scheduled PRN Albuterol Hfa (Ventolin Hfa), 2-4 PUFFS INH Q6H PRN for SOB/Wheezing Clonidine HCl (Clonidine HCl), 0.1 MG PO Q2H PRN for For any 2 symptoms Hydroxyzine HCl (Hydroxyzine HCl), 100 MG PO HSZ PRN for Insomnia Hydroxyzine HCl (Hydroxyzine HCl), 25 MG PO Q4H PRN for Anxiety Nicotine Polacrilex (Nicorelief), 2 PIECE MT Q1H PRN for CRAVINGS Risperidone (Risperidone), 1 MG PO Q4 PRN for agitation Allergies Coded Allergies: Gabapentin (Verified Allergy, Unknown, Restless Legs, 07/27/17) Vital Signs Date Time Temp Pulse Resp B/P (MAP) Pulse Ox O2 Delivery O2 Flow Rate FiO2 01/08/18 12:43 36.9 76 20 124/74 96 Room Air Departure Information Impression Primary Impression: Left otitis media Prescriptions Amoxicillin (AMOXIL) 500 Mg Cap 500 MG PO TID, #21 CAP Prov: Janay Porter PA 01/08/18 Referrals No Doctor, Assigned (PCP) Patient Instructions [facility] Additional Instructions Amoxicillin 500 mg: Take 1 tablet 3 times daily for 7 days. Any medication can cause an allergic reaction, stop the prescription immediately and return to the ER for rash, hives, breathing difficulties, or swelling. Pseudoephedrine(Sudaphed): 30-60mg every 6 hours as needed for nasal congestion. Do not take this with other stimulant products or supplements. Guaifenesin (Mucinex) : Take 1200 mg every 12 hours as needed for nasal/chest congestion, to help thin secretions. Ibuprofen(Motrin, Advil) may be used for fever or pain. Use 600mg every six hours as needed. Take with food. Avoid using more than 2400mg in a 24 hour period. Do not use 2400mg per day for more than three consecutive days without physician direction. Prolonged inappropriate use can lead to stomach upset or ulcers. (AND/OR) Acetaminophen(Tylenol) may be used for fever or pain. Use 1000mg every six hours as needed. Avoid using more than 3000mg in a 24 hour period. Return to the emergency department as needed.
== END 2018-01-08 13:40 | disposition home or self-care (01) ==
LOC: C.EDB 12:38 → C.EDD 13:40
DX: H65.92 Unspecified nonsuppurative otitis media, left ear (principal); F17.210 Nicotine dependence, cigarettes, uncomplicated; F32.9 Major depressive disorder, single episode, unspecified; G62.9 Polyneuropathy, unspecified; Z79.899 Other long term (current) drug therapy; Z88.8 Allergy status to other drugs, medicaments and biological substances